=== PATIENT | female | born 1990 | race Hispanic/Latino ===

== ENCOUNTER 2024-12-30 01:05 | Emergency (ER) | payer SELFPAY ==
[~2024-12-30] VITALS: Ht 160 cm; Wt 80.3 kg
[2024-12-30] MEDS: LIDOCAINE HCL 1% 20 ML VIAL INJ ONE (01:50)
[2024-12-30] MEDS: teTANUS/diphthERIA TOXOID [ADULT] 0.5 ML VIAL IM ONE (01:53)
[2024-12-30] MEDS: NEOMY SULF/BACITRA/POLYMYXIN B 1 EACH PACKET TP ONE (02:25)
--- NOTE | 2024-12-30 02:26 | ERN ---
ED Note History of Present Illness Stated Complaint: C/O LACERATION TO RT RING FINGER Chief Complaint: Laceration/Avulsion Time Seen by MD: 01:10 Time Seen by Midlevel: 01:10 Dictation: The patient is a 34-year-old female with a history of who presents to the emergency department with laceration to right middle finger onset prior to arrival after she accidentally cut it with a knife while washing dishes. Allergies: Coded Allergies: No Known Allergies (Unverified Allergy, Unknown, 12/30/24) Past Medical History Past Medical History: No Pertinent History Surgical History: None LMP: Dec 26, 2024 RN Note Reviewed/Agreed w/PFSH: Yes Review of System Dictation Constitutional: Negative for fever,chills, and weight loss Eyes: Negative for injury, pain,redness, and discharge ENT: Negative for injury,pain or swelling Cardiovascular: Negative for chest pain, palpitations, and edema Respiratory: Negative for shortness of breath, cough, and wheezing, Abdomen/GI: Negative for abdominal pain, nausea, vomiting, diarrhea, and constipation Back: Negative for injury and pain : Negative for injury, bleeding and discharge MS/Extremity: Negative for injury and deformity Skin: Negative for rash, and discoloration positive for right finger laceration Neuro: Negative for headache, weakness, numbness, tingling, and seizure Psych: Negative for suicide ideation, homicidal ideation, and hallucinations Initial Vital Sign VS Vital Signs Date Time Temp Pulse Resp B/P (MAP) Pulse Ox O2 Delivery O2 Flow Rate FiO2 12/30/24 01:09 97.9 85 20 115/80 98 Room Air Physical Exam Dictation Vital Signs reviewed General Appearance: Alert, oriented x 3, no acute distress, well developed, nourished. Head and Face: non-traumatic. Eyes: PERRL, pink conjunctivas, eyelid no trauma, anterior chamber with arcus senilis. Ears: Pinnas intact and no signs of trauma or erythema ear canals clear and no discharge TM no erythema Nose: No discharge, no bleeding. Oropharynx: Mouth normal, tongue pink. pharynx clear,no erythema, tonsils no exudates, no abscesses noted, mucous membrane moist Neck: Supple, non-tender, no thyromegaly, no masses, no JVD, no bruits Breast:Deferred Chest:No tenderness, no crepitus, no paradoxical movement, no retractions Lungs:Clear, well-ventilated, symmetric, no rales, no wheezing, no rhonchi, no stridor, good breath sounds bilaterally Heart: Regular rate, regular rhythm, no murmur, no gallops Vascular: no peripheral edema, Abdomen: Soft, positive bowel sounds, nondistended, no guarding, nontender, no rebound, no masses no hepatomegaly, no splenomegaly, no Serrato's sign, no hernias. Rectal: Deferred Genital: Deferred Neurological: Normal speech, motor function intact, sensory function intact Musculoskeletal: Neck nontender, full range of motion, back nontender, full range of motion, Extremities: nontender, full range of motion Skin: Color pink, dry, no turgor, no rash,no abrasions, no contusions. Small l aceration to right ring finger about 1 cm in length, minimal bleeding Lymphatic: Deferred Results (Laboratory/Radiology) Labs Reviewed?: Yes ED Course ED Course Orders Procedure Category Date Status Time Tetanus,Diphtheria PHA 12/30/24 Complete Tox [Adult] (Diphther 01:30 Lidocaine Hcl 1% 20ml PHA 12/30/24 Complete Vial (Lidocaine Hc 01:30 Laceration Tray Set CPOE 12/30/24 Transmitted Up (Er) 01:15 Neomy PHA 12/30/24 In Process Sulf/Bacitra/Polymyxin 02:30 Current Medications Medications (Trade) Dose Ordered Sig/Liv Route PRN Reason Start Time Stop Time Status Last Admin Dose Admin Lidocaine HCl (Lidocaine HCl 1% 20ml Vial) 10 ml ONCE ONCE INJ 12/30/24 01:30 12/30/24 01:31 DC 12/30/24 01:50 Neomycin/ Polymyxin/ Bacitracin (Triple Antibiotic Ointment) 1 appl ONCE ONCE TP 12/30/24 02:30 12/30/24 02:31 Tetanus/ Diphtheria Toxoids Adsorbed (DiphthERIA-teTANUS TOXOID [ADULT]/ DECAVAC) 0.5 ml ONCE ONCE IM 12/30/24 01:30 12/30/24 01:31 DC 12/30/24 01:53 Vital Signs Date Time Temp Pulse Resp B/P (MAP) Pulse Ox O2 Delivery O2 Flow Rate FiO2 12/30/24 01:09 97.9 85 20 115/80 98 Room Air Medical Decision Making MDM The patient is a 34-year-old female with a history of who presents to the emergency department with laceration to right middle finger onset prior to arrival after she accidentally cut it with a knife while washing dishes.\ Laceration repair done. Patient tolerated procedure well. Patient updated on tetanus. Patient will be discharged to follow up with PCP. Differential diagnosis: Laceration, avulsion, cellulitis Need for hospitalization: Patient does not meet criteria for hospitalization. There are no social concerns with this patient. Procedure Procedure Dictation: Time and Date Performed: 12/30/21 0210 INDICATION: Laceration Location: Right ring finger Informed consent was obtained. Pre-procedure time out was obtained. Anesthetic: 1% lidocaine Manual prep of skin and wound was done with hibiclens. Foreign Body: NO foreign bodies were identified. Length Repaired: 1 cm Suture used: 4 ethilon # of simple sutures: Three Aseptic technique was used during the entire procedure. Wound Location: upper extremity Wound's Depth, Shape: superficial Wound Explored: clean Irrigated w/ Saline (ccs): 50 Betadine Prep?: Yes Anesthesia: 1% Lidocaine Volume Anesthetic (ccs): 5 Wound Debrided: minimal Wound Repaired With: sutures Suture Size/Type: 4:0, nylon Number of Sutures: 3 Sterile Dressing Applied?: Yes DX & DISP Disposition: Discharge Departure Impression: Primary Impression: Laceration of finger of right hand Condition: Stable Additional Instructions: Keep your stitches clean and dry. Do not put your stitches under water, such as in a bath, pool, or denny. This can slow healing and raise your chance of getti ng an infection. Avoid activities or sports that could hurt the area of your stitches for 1-2 weeks. You should call your doctor if you develop any fever, redness or swelling around the cut, or pus draining from the cut. Your sutures will need to be removed in 10-14 days. FOLLOW-UP WITH PRIMARY CARE PROVIDER IN 1 TO 2 DAYS. TAKE MEDICATIONS DIRECTED HERE IN THE EMERGENCY ROOM. OKAY TO CONTINUE HOME MEDICATIONS UNLESS OTHERWISE DISCUSSED DURING YOUR VISIT IN THE EMERGENCY ROOM TODAY. RETURN TO YOUR NEAREST EMERGENCY ROOM IF SYMPTOMS WORSEN OR IF THERE IS NO IMPROVEMENT. CALL 911 IF YOU NEED IMMEDIATE ASSISTANCE. TAKE TYLENOL OR MOTRIN [id number] NEEDED AND IF NO CONTRAINDICATIONS ARE PRESENT. INCREASE ORAL HYDRATION. A WOUND CULTURE OR URINE CULTURE WAS ORDERED HERE IN THE EMERGENCY ROOM DEPARTMENT PLEASE FOLLOW-UP WITH PRIMARY CARE PROVIDER AND ADVISE THEM TO GET REPEAT PORTS FROM OUR FACILITY. IF YOU HAD ANY PILO WRAP/SPLINTS THAT WERE APPLIED HERE, PLEASE DO NOT REMOVE THEM UNTIL YOU SEE YOUR PRIMARY CARE OR SPECIALTY. Referrals: SELF,REFERRAL (PCP) Time of Disposition: 02:25 I have reviewed the case, and I agree with, Diagnosis and Plan JOCELIN RAMÍREZ [facility] Dec 30, 2024 02:25
[2024-12-30 02:32] VITALS: BP 129/74; PULSE 76; RESP 17; TEMP 98.2; O2SAT 99
== END 2024-12-30 02:40 | disposition home or self-care (01) ==
LOC: EDH 01:05
DX: S61.214A Laceration without foreign body of right ring finger without damage to nail, initial encounter (principal); W26.0XXA Contact with knife, initial encounter; Y93.89 Activity, other specified; Y92.89 Other specified places as the place of occurrence of the external cause; Y99.8 Other external cause status
CPT/HCPCS: 12001; 90471; 90714; 99283

== ENCOUNTER 2025-01-13 15:14 | Emergency (ER) | payer SELFPAY ==
[~2025-01-13] VITALS: Ht 157.5 cm; Wt 70.3 kg
[2025-01-13 15:33] VITALS: BP 113/74; PULSE 90; RESP 20; TEMP 98.5
--- NOTE | 2025-01-13 15:49 | ERN ---
ED Note History of Present Illness Stated Complaint: RT FINGER STITCHES REMOVAL Chief Complaint: Suture/Staple Removal Time Seen by MD: 15:14 Dictation: [age]ED THIRTY 4-YEAR-OLD FEMALE HERE FOR SUTURE REMOVAL OF SUTURES TO RIGHT 4TH FINGER PLACED ON [place] [facility] [place]. NO FEVER NO CHILLS NO NAUSEA VOMITING NO PRIMARY CARE DOCTOR NO ERYTHEMA NO SWELLING Allergies: Coded Allergies: No Known Allergies (Unverified Allergy, Unknown, 12/30/24) Past Medical History Past Medical History: No Pertinent History Surgical History: Other History: Not Applicable LMP: Dec 28, 2024 RN Note Reviewed/Agreed w/PFSH: Yes Review of System Dictation CONSTITUTIONAL: NEGATIVE EXCEPT FOR HPI HEAD/FACE: NEGATIVE EXCEPT FOR HPI EENT: NEGATIVE EXCEPT FOR HPI RESPIRATORY: NEGATIVE EXCEPT FOR HPI GASTROINTESTINAL/ABDOMINAL: NEGATIVE EXCEPT FOR HPI GENITOURINARY: NEGATIVE EXCEPT FOR HPI MUSCULOSKELETAL: NEGATIVE EXCEPT FOR HPI INTEGUMENTARY: NEGATIVE EXCEPT FOR HPI RIGHT 4TH FINGER LACERATION WITH THREE SIMPLE INTERRUPTED SUTURES WELL APPROXIMATED NO INFLAMMATION NEUROLOGICAL/PSYCH: NEGATIVE EXCEPT FOR HPI HEMATOLOGIC/LYMPHATIC: NEGATIVE EXCEPT FOR HPI ALL SYSTEMS NEGATIVE, EXCEPT NOTED ABOVE. 13 POINT REVIEW OF SYSTEMS ASSESSED AND ALL NEGATIVE EXCEPT FOR ABOVE. Initial Vital Sign VS Vital Signs Date Time Temp Pulse Resp B/P (MAP) Pulse Ox O2 Delivery O2 Flow Rate FiO2 01/13/25 15:33 98.4 90 20 113/74 Room Air Physical Exam Dictation VITAL SIGNS REVIEWED GENERAL APPEARANCE: ALERT, ORIENTED X 3, NO ACUTE DISTRESS, WELL DEVELOPED, NOURISHED. HEAD AND FACE: NON-TRAUMATIC. EYES: PERRL, PINK CONJUNCTIVAS, EYELID NO TRAUMA, ANTERIOR CHAMBER WITH ARCUS SENILIS. EARS: PINNAS INTACT AND NO SIGNS OF TRAUMA OR ERYTHEMA EAR CANALS CLEAR AND NO DISCHARGE TM NO ERYTHEMA NOSE: NO DISCHARGE, NO BLEEDING. OROPHARYNX: MOUTH NORMAL, TONGUE PINK, PHARYNX CLEAR,NO ERYTHEMA, TONSILS NO EXUDATES, NO ABSCESSES NOTED, MUCOUS MEMBRANE MOIST NECK: SUPPLE, NON-TENDER, NO THYROMEGALY, NO MASSES, NO JVD, NO BRUITS BREAST:DEFERRED CHEST:NO TENDERNESS, NO CREPITUS, NO PARADOXICAL MOVEMENT, NO RETRACTIONS LUNGS:CLEAR, WELL-VENTILATED, SYMMETRIC, NO RALES, NO WHEEZING, NO RHONCHI, NO STRIDOR, GOOD BREATH SOUNDS BILATERALLY HEART: REGULAR RATE, REGULAR RHYTHM, NO MURMUR, NO GALLOPS VASCULAR: NO PERIPHERAL EDEMA, ABDOMEN: SOFT, POSITIVE BOWEL SOUNDS, NONDISTENDED, NO GUARDING, NONTENDER, NO REBOUND, NO MASSES NO HEPATOMEGALY, NO SPLENOMEGALY, NO WRIGHT'S SIGN, NO HERNIAS. RECTAL: DEFERRED GENITAL: DEFERRED NEUROLOGICAL: NORMAL SPEECH, MOTOR FUNCTION INTACT, SENSORY FUNCTION INTACT MUSCULOSKELETAL: NECK NONTENDER, FULL RANGE OF MOTION, BACK NONTENDER, FULL RANGE OF MOTION, EXTREMITIES: NONTENDER, FULL RANGE OF MOTION SKIN: COLOR PINK, DRY, LACERATION TO DISTAL MEDIAL ASPECT RIGHT 4TH FINGER WITH THREE INTERRUPTED SUTURES. WELL APPROXIMATED NO INFLAMMATION LYMPHATIC: DEFERRED Results (Laboratory/Radiology) Labs Reviewed?: Yes ED Course ED Course Vital Signs Date Time Temp Pulse Resp B/P (MAP) Pulse Ox O2 Delivery O2 Flow Rate FiO2 01/13/25 15:33 98.4 90 20 113/74 Room Air Medical Decision Making MDM MEDICAL DECISION-MAKING BASED ON SUTURE REMOVAL STERI-STRIPS APPLIED LACERATION WELL APPROXIMATED NO INFLAMMATION NO SWELLING Procedure Procedure Dictation: PROCEDURE EXPLAINED TO PATIENT SHE AGREED TO PROCEED THREE SIMPLE INTERRUPTED SUTURES REMOVED TO DISTAL RIGHT 4TH FINGER LACERATION WELL APPROXIMATED STERI-STRIPS APPLIED PATIENT TOLERATED WELL DX & DISP Disposition: Discharge Departure Impression: Primary Impression: Encounter for removal of sutures Condition: Stable Additional Instructions: FOLLOW-UP WITH PRIMARY CARE PROVIDER IN 1 TO 2 DAYS. TAKE MEDICATIONS DIRECTED HERE IN THE EMERGENCY ROOM. OKAY TO CONTINUE HOME MEDICATIONS UNLESS OTHERWISE DISCUSSED DURING YOUR VISIT IN THE EMERGENCY ROOM TODAY. RETURN TO YOUR NEAREST EMERGENCY ROOM IF SYMPTOMS WORSEN OR IF THERE IS NO IMPROVEMENT. CALL 911 IF YOU NEED IMMEDIATE ASSISTANCE. TAKE TYLENOL OR MOTRIN [id number] NEEDED AND IF NO CONTRAINDICATIONS ARE PRESENT. INCREASE ORAL HYDRATION. A WOUND CULTURE OR URINE CULTURE WAS ORDERED HERE IN THE EMERGENCY ROOM DEPARTMENT PLEASE FOLLOW-UP WITH PRIMARY CARE PROVIDER AND ADVISE THEM TO GET REPEAT PORTS FROM OUR FACILITY. IF YOU HAD ANY PILO WRAP/SPLINTS THAT WERE APPLIED HERE, PLEASE DO NOT REMOVE THEM UNTIL YOU SEE YOUR PRIMARY CARE OR SPECIALTY. SEE YOUR PRIMARY CARE DOCTOR FOR FOLLOW UP Referrals: SELF,REFERRAL (PCP) Time of Disposition: 15:49 I have reviewed the case, and I agree with, Diagnosis and Plan JUSTICE HENDRICKSON NP Jan 13, 2025 15:49
== END 2025-01-13 16:04 | disposition home or self-care (01) ==
LOC: EDH 15:14
DX: S61.214D Laceration without foreign body of right ring finger without damage to nail, subsequent encounter (principal); Z48.02 Encounter for removal of sutures; Z98.890 Other specified postprocedural states; X58.XXXD Exposure to other specified factors, subsequent encounter
CPT/HCPCS: 99282